=== PATIENT | male | born 1955 | race Caucasian/White ===

== ENCOUNTER → 2020-03-04 14:20 | Outpatient (BNVA) | payer OTHER, SELFPAY | PROVIDERS: PCP Internal Medicine; Visit Provider Urology | DX: Z76.89 Persons encountering health services in other specified circumstances (principal) ==

== ENCOUNTER → 2020-09-17 13:44 | Outpatient (BNVA) | payer OTHER, SELFPAY | PROVIDERS: PCP Internal Medicine; Visit Provider Urology ==

== ENCOUNTER → 2021-01-14 11:27 | Outpatient (BNVA) | payer OTHER, SELFPAY | PROVIDERS: PCP Internal Medicine; Visit Provider Urology ==

== ENCOUNTER → 2021-05-14 08:53 | Outpatient (BNVA) | payer MEDICARE, OTHER, SELFPAY | PROVIDERS: PCP Internal Medicine; Visit Provider Urology | DX: N52.01 Erectile dysfunction due to arterial insufficiency (principal); C61 Malignant neoplasm of prostate | CPT/HCPCS: Q3014 ==

== ENCOUNTER 2021-09-08 12:49 | Outpatient (AMB) | payer MEDICARE, OTHER, SELFPAY ==
--- NOTE | 2021-09-08 12:49 | A.OFFVIS_ITS ---
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 He is a patient of Dr. Chu. He is seen for the following urologic conditions - BPH - prostate cancer - erectile dysfunction Telemedicine evaluation 15 minute consultation [employer] [place] PSA continues to decline PSA 2.5 Finasteride 5 times a week Good response to sildenafil 100 mg prescription refilled Continue surveillance every 4 months Prostate cancer: low risk, low volume [place] 6 - 2018 Last PSA 2.8 PiRADS 3 lesion x2 - equivocal and stable on MRI Prostate cancer was diagnosed 01/[address] Fernández. Diagnosis was reached by 01/18 , needle biopsy, for elevated PSA, PSA at diagnosis 4.7, size at TRUS 50 01/20 , needle biopsy. The [place] grade is Jan 201705/16 , 3+3 = 6 < 10% January 2019 1 of 12 cores RAL 15% , 3+3 = 6. TNM Classification of Malignant Tumours (TNM) T1c. The D'Sharlene (NCCN) risk category is Ultralow risk (PSA< 4, Gl < 7, T1c). Initial therapy included Primary treatment, Deferred Therapy (active surveillance). Recent labs included 04/21 , a PSA (prostate-specific antigen) 3.9 08/19 2.9, 12/20 2.0, 04/22 2.2, 07/22 2.9 - 02/21 2.9, 09/22 3.2, 12/23 3.5, 04/25 2.8, 08/23 2.5 Recent imaging included 05/23 , an MRI (magnetic resonance imaging) - right apex 1.1 cm PiRADs 3 - left mid gland posterior 1.1cm PiRADs 3 Associated conditions erectile dysfunction No hematuria No hot flashes No incontinence No osteopenia No pathologic fracture No radiation cystitis No rectal urgency No Therapeutic plan: Active Surveillance - finasteride 3 times a week Erectile dysfunction responsive to sildenafil 100mg PFSH Medical History Adenoma of right adrenal gland Benign prostatic hyperplasia with lower urinary tract symptoms 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 n Dysplastic nevus Elevated PSA Fatty liver History of kidney stones Hx of basal cell carcinoma Nocturia Prostate cancer Surgical History History of surgery Review of Systems Const All systems reviewed & are unremarkable except as noted in HPI and below Reports no additional complaints Resp Reports no additional complaints GI Reports no additional complaints Reports as per HPI Musc Reports no additional complaints Physical Exam Telemedicine evaluation Appropriate responses Regular breathing rate and rhythm HEENT Head: Yes normal to inspection Ears: hearing grossly normal bilaterally Eyes General: appearance normal, both eyes and all related structures Neck Neck: Yes normal visual inspection Chest Chest palpation & inspection: normal inspection of the chest Resp Effort & Inspection: normal respiratory effort and able to speak in complete sentences Assessment & Plan Assessment & Plan (1) Prostate cancer: Comment: Low-grade, low volume 2019 Code(s): C61 - Malignant neoplasm of prostate (2) Erectile dysfunction due to arterial insufficiency: Code(s): N52.01 - Erectile dysfunction due to arterial insufficiency Plan Trial tadalafil Orders: Orders Prostate Specific Antigen 4 Months C61 - Malignant neoplasm of prostate Medications: New tadalafil 5 mg PO DAILY 90 tabs 1RF sexual activity 90 days N52.01 - Erectile dysfunction due to arterial insufficiency Patient Instructions: Imaging studies, laboratory and physical exam results were discussed and reviewed in detail. No major barriers to patient understanding were identified. An opportunity to ask questions regarding the treatment plan was provided. All questions were answered. The patient expressed understanding and agreement with the above treatment plan. The patient is aware they should contact our office by phone for worsening of their current condition or the appearance of new urologic symptoms. Compliance is encouraged with any medications and followup testing that is ordered. It is a privilege to participate in the urologic care of your patient. If you have any questions or concerns regarding treatment for the above conditions, or other urologic issues, please do not hesitate to contact me. The office telephone contact is [phone]. This note is constructed using voice recognition software. While every effort has been made to ensure accuracy pump house operator errors may have been included. Yours sincerely, Dr Miguel Hodges MD, ISMA [facility] [place] - Urology Providers of Expert, Compassionate Care for the Genitourinary System Telehealth Telehealth Location of provider rendering services: practice address Location of patient: address on file Patient Identification confirmed using: Name, : Yes Telehealth method: voice only Patient verbally consented to treatment: Yes Patient verbally consented to billing insurance company: Yes Patient informed of any privacy concerns related to visit: Yes Coding Level of Care Code Tele Est Pt Level 3 (45449) Diagnoses Prostate cancer C61 Erectile dysfunction due to arterial insufficiency N52.01
== END 2021-09-08 14:17 | disposition home or self-care (01) ==
LOC: HO.HUSH 12:49
PROVIDERS: PCP Internal Medicine; Visit Provider Urology
DX: C61 Malignant neoplasm of prostate (principal); N52.01 Erectile dysfunction due to arterial insufficiency
CPT/HCPCS: 99499

== ENCOUNTER → 2021-09-08 12:49 | Outpatient (BNVA) | payer MEDICARE, OTHER, SELFPAY | PROVIDERS: PCP Internal Medicine; Visit Provider Urology | DX: Z13.89 Encounter for screening for other disorder (principal) ==

== ENCOUNTER → 2022-01-06 14:14 | Outpatient (BNVA) | payer MEDICARE, OTHER, SELFPAY | PROVIDERS: PCP Internal Medicine; Visit Provider Urology | DX: R97.20 Elevated prostate specific antigen [PSA] (principal); C61 Malignant neoplasm of prostate | CPT/HCPCS: 99212 ==

== ENCOUNTER → 2022-07-09 09:03 | Outpatient (BNVA) | payer MEDICARE, OTHER, SELFPAY | PROVIDERS: PCP Internal Medicine; Visit Provider Urology | DX: C61 Malignant neoplasm of prostate (principal); N52.01 Erectile dysfunction due to arterial insufficiency | CPT/HCPCS: Q3014 ==

== ENCOUNTER 2023-01-11 11:19 | Outpatient (AMB) | payer MEDICARE, OTHER, SELFPAY ==
--- NOTE | 2023-01-11 11:22 | MHC.OFFVIS ---
Intake Intake Visit Reasons: 6M PSA/MRI(set) Intake Note: Patient is present for for a follow-up on PSA & MRI Results Results: 12/31/22- PSA: 2.2 ng/mL Urology Med: Finasteride, Tadalafil, Sildenafil Antibiotic Allergy: None Blood Thinner: None Accounting Practice Manager Required: No Accompanied by: Self / Same As Patient Allergies No Known Allergies Allergy (Verified 01/11/23 11:26) HPI HPI Comments History of Present Illness Details Onofre is a pleasant male. He is a patient of Dr. Chu. He is seen for the following urologic conditions - BPH - prostate cancer - erectile dysfunction PSA lowest it has been MRI no evidence of disease Continue current therapy Recent pancreatic lesion diagnosis Prostate cancer: low risk, low volume [place] 6 - 2019 PiRADS 3 lesion x2 - equivocal and stable on MRI Prostate cancer was diagnosed 01/[address] Fernández. Diagnosis was reached by 01/18 , needle biopsy, for elevated PSA, PSA at diagnosis 4.7, size at TRUS 50 01/20 , needle biopsy. The [place] grade is Jan 2017/ , 3+3 = 6 < 10% January 2019 1 of 12 cores RAL 15% , 3+3 = 6. TNM Classification of Malignant Tumours (TNM) T1c. The D'Sharlene (NCCN) risk category is Ultralow risk (PSA< 4, Gl < 7, T1c). Initial therapy included Primary treatment, Deferred Therapy (active surveillance). Recent labs included 04/21 , a PSA (prostate-specific antigen) 3.9 08/19 2.9, 12/20 2.0, 04/22 2.2, 07/22 2.9 - 02/21 2.9, 09/22 3.2, 12/23 3.5, 04/25 2.8, 08/23 2.5, 12/24 2.6, 05/27 2.4, 12/25 2.2 Recent imaging included 05/23 , an MRI (magnetic resonance imaging) - right apex 1.1 cm PiRADs 3 - left mid gland posterior 1.1cm PiRADs 3 Associated conditions erectile dysfunction Yes Therapeutic plan: Active Surveillance - finasteride 3 times a week Erectile dysfunction Responsive to sildenafil 100mg Baseline daily tadalafil 5 mg PFSH Medical History Adenoma of right adrenal gland Benign prostatic hyperplasia with lower urinary tract symptoms 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n Dysplastic nevus Elevated PSA Fatty liver History of kidney stones Hx of basal cell carcinoma Nocturia Prostate cancer Surgical History History of surgery Review of Systems Const Denies chills and Denies fever(s) Card Reports no additional complaints and Denies syncope Resp Denies cough GI Denies abdominal pain and Denies heartburn Reports as per HPI and Denies change in libido Neuro Denies syncope Psych Denies change in libido Endo Denies change in libido Physical Exam Const General: cooperative, healthy appearing, comfortable and no acute distress Orientation/consciousness: patient oriented x3 HEENT Face and sinus: Yes normal facial exam Mouth: moist mucous membranes Neck Neck: Yes normal visual inspection, Yes full ROM and Yes trachea midline Chest Chest palpation & inspection: normal inspection of the chest Resp Effort & Inspection: normal respiratory effort, able to speak in complete sentences and no respiratory distress GI Inspection: Yes normal to inspection Back/Spine/Pelvis Cervical Spine: normal cervical lordosis Thoracic/Lumbar Spine: thoracic and lumbar spine normal to inspection Skin General skin exam: no rashes or lesions noted Neuro General: patient oriented x3, gait normal, tone normal and moves all extremities Extrem General: Yes normal to inspection and Yes capillary refill normal Assessment & Plan Assessment & Plan (1) Prostate cancer: Comment: Low-grade, low volume 2019 Code(s): C61 - Malignant neoplasm of prostate (2) Erectile dysfunction due to arterial insufficiency: Code(s): N52.01 - Erectile dysfunction due to arterial insufficiency Plan 4 month follow-up tele visit Patient Instructions: Imaging studies, laboratory and physical exam results were discussed and reviewed in detail. No major barriers to patient understanding were identified. An opportunity to ask questions regarding the treatment plan was provided. All questions were answered. The patient expressed understanding and agreement with the above treatment plan. The patient is aware they should contact our office by phone for worsening of their current condition or the appearance of new urologic symptoms. Compliance is encouraged with any medications and followup testing that is ordered. It is a privilege to participate in the urologic care of your patient. If you have any questions or concerns regarding treatment for the above conditions, or other urologic issues, please do not hesitate to contact me. The office telephone contact is [phone]. This note is constructed using voice recognition software. While every effort has been made to ensure accuracy finance business manager errors may have been included. Yours sincerely, Dr Miguel Hodges MD, ISMA [facility] - Urology Providers of Expert, Compassionate Care for the Genitourinary System Coding Level of Care Code Est Pt Level 3 (41437) Diagnoses Prostate cancer C61 Erectile dysfunction due to arterial insufficiency N52.01
== END 2023-01-11 12:14 | disposition home or self-care (01) ==
PROVIDERS: PCP Internal Medicine; Visit Provider Urology
DX: C61 Malignant neoplasm of prostate (principal); N52.01 Erectile dysfunction due to arterial insufficiency
CPT/HCPCS: 99213

== ENCOUNTER → 2023-01-11 11:19 | Outpatient (BNVA) | payer MEDICARE, OTHER, SELFPAY | PROVIDERS: Visit Provider Urology | DX: C61 Malignant neoplasm of prostate (principal); N52.01 Erectile dysfunction due to arterial insufficiency | CPT/HCPCS: 99212 ==

== ENCOUNTER 2023-06-15 10:41 | Outpatient (AMB) | payer MEDICARE, OTHER, SELFPAY ==
--- NOTE | 2023-06-15 10:42 | A.OFFVIS_ITS ---
Intake Intake Visit Reasons: 4M PSA(set)Confirmed Intake Note: Patient presents today for a follow-up on PSA Meds- Finasteride, Sildenafil, Tadalafil Allergies to Antibiotic- No Known Allergies Blood Thinner- None Linux Developer Required: No Allergies No Known Allergies Allergy (Verified 06/15/23 10:43) Medication List - Last Reconciled 06/15/23 by Miguel Hodges MD finasteride 5 mg PO DAILY 90 days sildenafil 100 mg PO DAILY PRN 30 days tadalafil 10 mg PO DAILY 90 days HPI HPI Comments History of Present Illness Details Onofre is a pleasant male. He is a patient of Dr. Chu. He is seen for the following urologic conditions - BPH - prostate cancer - erectile dysfunction Telemedicine Evaluation 15 min Consultation [employer] attempted PSA at 2.8 MRI no evidence of disease Continue current therapy Pancreatic Lesion - 03/26 Whipple procedure Prostate cancer: low risk, low volume [place] 6 - 12/25 PiRADS 3 lesion x2 - equivocal and stable on MRI Prostate cancer was diagnosed 01/[address] Fernández. Diagnosis was reached by 01/18 , needle biopsy, for elevated PSA, PSA at diagnosis 4.7, size at TRUS 50 01/20 , needle biopsy. The [place] grade is Jan 201705/16 , 3+3 = 6 < 10% January 2019 1 of 12 cores RAL 15% , 3+3 = 6. TNM Classification of Malignant Tumours (TNM) T1c. The D'Sharlene (NCCN) risk category is Ultralow risk (PSA< 4, Gl < 7, T1c). Initial therapy included Primary treatment, Deferred Therapy (active surveillance). Recent labs included 04/21 , a PSA (prostate-specific antigen) 3.9 08/19 2.9, 12/20 2.0, 04/22 2.2, 07/22 2.9 - 02/21 2.9, 09/22 3.2, 12/23 3.5, 04/25 2.8, 08/23 2.5, 12/24 2.6, 05/27 2.4, 12/25 2.2, 06/25 2.8 Recent imaging included 05/23 , an MRI (magnetic resonance imaging) - right apex 1.1 cm PiRADs 3 - left mid gland posterior 1.1cm PiRADs 3 Associated conditions erectile dysfunction Yes Therapeutic plan: Active Surveillance - finasteride 3 times a week Erectile dysfunction Responsive to sildenafil 100mg Baseline daily tadalafil 5 mg PFSH Medical History Hx of basal cell carcinoma History of kidney stones Adenoma of right adrenal gland Fatty liver Dysplastic nevus 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n Benign prostatic hyperplasia with lower urinary tract symptoms Nocturia Elevated PSA Prostate cancer Surgical History History of surgery Review of Systems Const All systems reviewed & are unremarkable except as noted in HPI and below Reports no additional complaints Resp Reports no additional complaints GI Reports no additional complaints Reports as per HPI Musc Reports no additional complaints Physical Exam Telemedicine evaluation Appropriate responses Regular breathing rate and rhythm HEENT Head: Yes normal to inspection Ears: hearing grossly normal bilaterally Eyes General: appearance normal, both eyes and all related structures Neck Neck: Yes normal visual inspection Chest Chest palpation & inspection: normal inspection of the chest Resp Effort & Inspection: normal respiratory effort and able to speak in complete sentences Assessment & Plan Assessment & Plan (1) Prostate cancer: Comment: Low-grade, low volume 2018 Code(s): C61 - Malignant neoplasm of prostate (2) Erectile dysfunction due to arterial insufficiency: Code(s): N52.01 - Erectile dysfunction due to arterial insufficiency Plan Continue six-month surveillance and finasteride Orders: Orders Prostate Specific Antigen 6 Months C61 - Malignant neoplasm of prostate Medications: Refilled finasteride 5 mg PO DAILY 90 tabs 1RF 90 days R97.20 - Elevated prostate specific antigen [PSA], C61 - Malignant neoplasm of prostate Patient Instructions: Imaging studies, laboratory and physical exam results were discussed and reviewed in detail. No major barriers to patient understanding were identified. An opportunity to ask questions regarding the treatment plan was provided. All questions were answered. The patient expressed understanding and agreement with the above treatment plan. The patient is aware they should contact our office by phone for worsening of their current condition or the appearance of new urologic symptoms. Compliance is encouraged with any medications and followup testing that is ordered. It is a privilege to participate in the urologic care of your patient. If you have any questions or concerns regarding treatment for the above conditions, or other urologic issues, please do not hesitate to contact me. The office telephone contact is [phone]. This note is constructed using voice recognition software. While every effort has been made to ensure accuracy house wrecker errors may have been included. Yours sincerely, Dr Miguel Hodges MD, ISMA [facility] - Urology Providers of Expert, Compassionate Care for the Genitourinary System Telehealth Telehealth Location of provider rendering services: practice address Location of patient: address on file Patient Identification confirmed using: Name, : Yes Telehealth method: video Patient verbally consented to treatment: Yes Patient verbally consented to billing insurance company: Yes Patient informed of any privacy concerns related to visit: Yes Coding Level of Care Code Tele Est Pt Level 3 (57010) Diagnoses Prostate cancer C61 Erectile dysfunction due to arterial insufficiency N52.01
== END 2023-06-15 11:39 | disposition home or self-care (01) ==
LOC: HO.HUSH 10:41
PROVIDERS: PCP Internal Medicine; Visit Provider Urology
DX: C61 Malignant neoplasm of prostate (principal); N52.01 Erectile dysfunction due to arterial insufficiency
CPT/HCPCS: 99213

== ENCOUNTER → 2023-06-15 10:41 | Outpatient (BNVA) | payer MEDICARE, OTHER, SELFPAY | PROVIDERS: PCP Internal Medicine; Visit Provider Urology ==

== ENCOUNTER 2023-12-14 11:41 | Outpatient (AMB) | payer MEDICARE, OTHER, SELFPAY ==
--- NOTE | 2023-12-14 11:55 | MHC.OFFVIS ---
Intake Visit Reasons: 6M Follow Up-PSA(psa?) Intake Note: Patient is Present for Follow Up PSA Urology Medication: Finasteride, Sildenafil, Tadalafil Antibiotic Allergies:None Blood Thinners: None PSA 11/29/23- 2.5 Last PSA- 2.9 Lean Process Deployment Consultant Required: No Allergies No Known Allergies Allergy (Verified 12/14/23 11:56) Medication List - Last Reconciled 12/14/23 by Miguel Hodges MD amlodipine 10 mg PO DAILY escitalopram oxalate 10 mg PO DAILY finasteride 5 mg PO DAILY 90 days losartan 50 mg PO DAILY sildenafil 100 mg PO DAILY PRN 30 days tadalafil 10 mg PO DAILY 90 days HPI Comments Details: Onofre is a pleasant male. He is a patient of Dr. Chu. He is seen for the following urologic conditions - BPH - prostate cancer - erectile dysfunction Current PSA 2.5 MRI no evidence of disease Continue current therapy Recommend finasteride alternating month dosage Pancreatic Lesion - 03/26 Whipple procedure Prostate cancer: low risk, low volume [place] 6 - 12/25 PiRADS 3 lesion x2 - equivocal and stable on MRI Prostate cancer was diagnosed 01/[address] Fernández. Diagnosis was reached by 01/18 , needle biopsy, for elevated PSA, PSA at diagnosis 4.7, size at TRUS 50 01/20 , needle biopsy. The [place] grade is Jan 201705/16 , 3+3 = 6 < 10% January 2019 1 of 12 cores RAL 15% , 3+3 = 6. TNM Classification of Malignant Tumours (TNM) T1c. The D'Sharlene (NCCN) risk category is Ultralow risk (PSA< 4, Gl < 7, T1c). Initial therapy included Primary treatment, Deferred Therapy (active surveillance). Recent labs included 04/21 , a PSA (prostate-specific antigen) 3.9 08/19 2.9, 12/20 2.0, 04/22 2.2, 07/22 2.9 - 02/21 2.9, 09/22 3.2, 12/23 3.5, 04/25 2.8, 08/23 2.5, 12/24 2.6, 05/27 2.4, 12/25 2.2, 06/25 2.8, 12/26 2.5 Recent imaging included 05/23 , an MRI (magnetic resonance imaging) - right apex 1.1 cm PiRADs 3 - left mid gland posterior 1.1cm PiRADs 3 Associated conditions erectile dysfunction Yes Therapeutic plan: Active Surveillance - finasteride 3 times a week Erectile dysfunction Responsive to sildenafil 100mg Baseline daily tadalafil 10 mg PFSH Medical History Hx of basal cell carcinoma History of kidney stones Adenoma of right adrenal gland Fatty liver Dysplastic nevus 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n Benign prostatic hyperplasia with lower urinary tract symptoms Nocturia Elevated PSA Prostate cancer Surgical History History of surgery Review of Systems Const Denies chills and Denies fever(s) Card Reports no additional complaints and Denies syncope Resp Denies cough GI Denies abdominal pain and Denies heartburn Reports as per HPI and Denies change in libido Neuro Denies syncope Psych Denies change in libido Endo Denies change in libido Physical Exam Const General: cooperative, healthy appearing, comfortable and no acute distress Orientation/consciousness: patient oriented x3 HEENT Face and sinus: Yes normal facial exam Mouth: moist mucous membranes Neck Neck: Yes normal visual inspection, Yes full ROM and Yes trachea midline Chest Chest palpation & inspection: normal inspection of the chest Resp Effort & Inspection: normal respiratory effort, able to speak in complete sentences and no respiratory distress GI Inspection: Yes normal to inspection Back/Spine/Pelvis Cervical Spine: normal cervical lordosis Thoracic/Lumbar Spine: thoracic and lumbar spine normal to inspection Skin General skin exam: no rashes or lesions noted Neuro General: patient oriented x3, gait normal, tone normal and moves all extremities Extrem General: Yes normal to inspection and Yes capillary refill normal Assessment & Plan Assessment & Plan (1) Erectile dysfunction due to arterial insufficiency: Code(s): N52.01 - Erectile dysfunction due to arterial insufficiency Category: Medical (2) Prostate cancer: Comment: Low-grade, low volume 2018 Code(s): C61 - Malignant neoplasm of prostate Category: Medical Plan Six-month follow-up PSA Orders: Orders Prostate Specific Antigen 6 Months C61 - Malignant neoplasm of prostate Patient Instructions: Imaging studies, laboratory and physical exam results were discussed and reviewed in detail. No major barriers to patient understanding were identified. An opportunity to ask questions regarding the treatment plan was provided. All questions were answered. The patient expressed understanding and agreement with the above treatment plan. The patient is aware they should contact our office by phone for worsening of their current condition or the appearance of new urologic symptoms. Compliance is encouraged with any medications and followup testing that is ordered. It is a privilege to participate in the urologic care of your patient. If you have any questions or concerns regarding treatment for the above conditions, or other urologic issues, please do not hesitate to contact me. The office telephone contact is [phone]. This note is constructed using voice recognition software. While every effort has been made to ensure accuracy pulpwood contractor errors may have been included. Yours sincerely, Dr Miguel Hodges MD, ISMA [facility] - Urology Providers of Expert, Compassionate Care for the Genitourinary System Coding Level of Care Code Est Pt Level 3 (94860) Diagnoses Erectile dysfunction due to arterial insufficiency N52.01 Prostate cancer C61
== END 2023-12-14 12:28 | disposition home or self-care (01) ==
LOC: HO.HUSH 11:41
PROVIDERS: PCP Internal Medicine; Visit Provider Urology
DX: N52.01 Erectile dysfunction due to arterial insufficiency (principal); C61 Malignant neoplasm of prostate
CPT/HCPCS: 99213

== ENCOUNTER → 2023-12-14 11:41 | Outpatient (BNVA) | payer MEDICARE, OTHER, SELFPAY | PROVIDERS: PCP Internal Medicine; Visit Provider Urology | DX: C61 Malignant neoplasm of prostate (principal); N40.0 Benign prostatic hyperplasia without lower urinary tract symptoms; N52.9 Male erectile dysfunction, unspecified; N52.01 Erectile dysfunction due to arterial insufficiency; Z79.899 Other long term (current) drug therapy | CPT/HCPCS: 99212 ==

== ENCOUNTER 2024-06-21 11:25 | Outpatient (AMB) | payer MEDICARE, OTHER, SELFPAY ==
--- NOTE | 2024-06-21 11:42 | A.OFFVIS_ITS ---
Intake Visit Reasons: 6m/psa Intake Note: Pt presents to the office today for a 6 month follow up/PSA. Allergies No Known Allergies Allergy (Verified 06/21/24 11:43) HPI Comments Details: Onofre is a pleasant male. He is a patient of Dr. Chu. He is seen for the following urologic conditions - BPH - prostate cancer - erectile dysfunction PSA jump since last lab work Has been on alternating finasteride Follow in 4 months If persistently high would consider repeat biopsy Pancreatic Lesion - 03/26 Whipple procedure Prostate cancer: low risk, low volume Satinder 6 - 12/25 PiRADS 3 lesion x2 - equivocal and stable on MRI Prostate cancer was diagnosed 01/[address] Fernández. Diagnosis was reached by 01/18 , needle biopsy, for elevated PSA, PSA at diagnosis 4.7, size at TRUS 50 01/20 , needle biopsy. The Satinder grade is Jan 201705/16 , 3+3 = 6 < 10% January 2019 1 of 12 cores RAL 15% , 3+3 = 6. TNM Classification of Malignant Tumours (TNM) T1c. The D'Sharlene (NCCN) risk category is Ultralow risk (PSA< 4, Gl < 7, T1c). Initial therapy included Primary treatment, Deferred Therapy (active surveillance). Recent labs included 04/21 , a PSA (prostate-specific antigen) 3.9 08/19 2.9, 12/20 2.0, 04/22 2.2, 07/22 2.9 - 02/21 2.9, 09/22 3.2, 12/23 3.5, 04/25 2.8, 08/23 2.5, 12/24 2.6, 05/27 2.4, 12/25 2.2, 06/25 2.8, 12/26 2.5, 06/26 6.3 Recent imaging included 05/23 , an MRI (magnetic resonance imaging) - right apex 1.1 cm PiRADs 3 - left mid gland posterior 1.1cm PiRADs 3 Associated conditions erectile dysfunction Yes Therapeutic plan: Active Surveillance - finasteride 3 times a week Erectile dysfunction Responsive to sildenafil 100mg Baseline daily tadalafil 10 mg PFSH Medical History Hx of basal cell carcinoma History of kidney stones Adenoma of right adrenal gland Fatty liver Dysplastic nevus 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n Benign prostatic hyperplasia with lower urinary tract symptoms Nocturia Elevated PSA Prostate cancer Surgical History History of surgery Review of Systems Const Denies chills and Denies fever(s) Card Reports no additional complaints and Denies syncope Resp Denies cough GI Denies abdominal pain and Denies heartburn Reports as per HPI and Denies change in libido Neuro Denies syncope Psych Denies change in libido Endo Denies change in libido Physical Exam Const General: cooperative, healthy appearing, comfortable and no acute distress Orientation/consciousness: patient oriented x3 HEENT Face and sinus: Yes normal facial exam Mouth: moist mucous membranes Neck Neck: Yes normal visual inspection, Yes full ROM and Yes trachea midline Chest Chest palpation & inspection: normal inspection of the chest Resp Effort & Inspection: normal respiratory effort, able to speak in complete sentences and no respiratory distress GI Inspection: Yes normal to inspection Back/Spine/Pelvis Cervical Spine: normal cervical lordosis Thoracic/Lumbar Spine: thoracic and lumbar spine normal to inspection Skin General skin exam: no rashes or lesions noted Neuro General: patient oriented x3, gait normal, tone normal and moves all extremities Extrem General: Yes normal to inspection and Yes capillary refill normal Assessment & Plan Assessment & Plan (1) Prostate cancer: Comment: Low-grade, low volume 2019 Code(s): C61 - Malignant neoplasm of prostate Category: Medical Plan Four month follow-up repeat PSA Orders: Orders Prostate Specific Antigen 4 Months C61 - Malignant neoplasm of prostate Patient Instructions: This note is constructed using voice recognition software. While every effort has been made to ensure accuracy advertising operations manager errors may have been included. Imaging studies, laboratory and physical exam results were discussed and reviewed in detail. No major barriers to patient understanding were identified. An opportunity to ask questions regarding the treatment plan was provided. All questions were answered. The patient expressed understanding and agreement with the above treatment plan. The patient is aware they should contact our office by phone for worsening of their current condition or the appearance of new urologic symptoms. Compliance is encouraged with any medications and followup testing that is ordered. It is a privilege to participate in the urologic care of your patient. If you have any questions or concerns regarding treatment for the above conditions, or other urologic issues, please do not hesitate to contact me. The office telephone contact is [phone]. Sincerely, Dr Miguel Hodges MD, ISMA [facility] - Urology Compassionate Specialist Care for the Genitourinary System Coding Level of Care Code Est Pt Level 3 (28284) Diagnoses Prostate cancer C61
--- OUTSIDE RECORDS SUMMARY | 2024-06-21 13:43 | XMS_ITS | Encounter Summary ---
Author Organization [facility] Address [address] [place] [address] Care Team Providers Care Assistant Account Executive Name Role Phone Akira Chu MD Primary Care Provider [phone] Reason for Visit * Reason Comments Consult * Consultation (Routine) - Closed Specialty Diagnoses / Procedures Referred By Contac t Referred To Contact Hematology and Oncology Diagnoses Thrombocytopenia (CMS/HCC) Akira Chu MD [address] [address] Phone: tel: fax: [facility] Hematology Oncology [address] [place] [phone] Phone: tel: fax: Referral ID Status Reason Start Date Expiration Date V isits Requested Visits Authorized [id number] Closed Specialty Services Required 05/09/2024 05/09/2025 1 1 Encounter Details Date Type Department Care Team (Latest Contact Info) Description 05/23/2024 11:00 AM EST Office Visit [facility] Hematology Oncology [address] [place] [phone] Marianne Gilbert MD [address] [place], [place] [phone] Thrombocytopenia (CMS/HCC) Social History Tobacco Use Types Packs/Day Years Used Date Smoking Tobacco: Never Smokeless Tobacco: Never Tobacco Cessation:Counseling Given: Not Answered Alcohol Use Standard Drinks/Week Comments Not Currently 0 (1 standard drink = 0.6 oz pur e alcohol) Interpersonal Safety Answer Date Record ed Physical Abuse 02/06/2024 Verbal Abuse 02/06/2024 Sex and Gender Information Value Date Recorded Sex Assigned at Male 05/09/2024 12:21 PM EST Legal Sex Male 4:09 PM EST Gender Identity Male 05/09/2024 12:21 PM EST Sexual Orientation Not on file documented as of this encounter Last Filed Vital Signs Vital Sign Reading Time Taken Comments Blood Pressure 146/73 05/23/2024 11:04 AM EST Pulse 75 05/23/2024 11:04 AM EST Temperature 36.6 ??C (97.8 ??F) 05/23/2024 11:[address] Respiratory Rate - - Oxygen Saturation 100% 05/23/2024 11:04 AM EST Inhaled Oxygen Concentration - - Weight 92.1 kg (203 lb) 05/23/2024 11:04 AM EST Height 172.7 cm (5' 8 ) 05/23/2024 11:04 AM EST Body Mass Index 30.87 05/23/2024 11:04 AM EST documented in this encounter Progress Notes * Marianne Gilbert MD - 05/23/2024 11:00 AM EST ONC CANCER INITIAL VISIT Dear Akira, Thank you very much for referring this patient for consultation. HPI: Patient is a 68-year-old man, who has multiple medical issues including fatty liver and mild splenomegaly, patient found to have mild to moderate, cytopenia so referred to me for further hematological evaluation, patient denies any significant bleeding bruising, patient denies any prior history anyfamily history of hematological disorder ROS: GENERAL: No anorexia, intentional weight loss, fever, chills, night sweats or any significant fatigue HEENT no headache no visual symptom NECK: No lumps, goiter, pain or significant neck swelling RESPIRATORY: No cough or shortness of breath CARDIOVASCULAR: No chest pain. GI: No abdominal discomfort, blood in stools or black stools MUSCULOSKELETAL: No new unusual aches and pain HEMATOLOGY/LYMPHOLOGY No prolonged bleeding, easy bruisability or swollen nodes Other Systems review is non contributory PAST MEDICAL HISTORY: Anxiety disorder Benign prostatic hypertrophy Esophagitis Hypertension Dyslipidemia Nephrolithiasis Fatty liver Thrombocytopenia PAST SURGICAL HISTORY: Cholecystectomy Whipple procedure Knee surgery SOCIAL HISTORY: He never smoke He denied alcohol use and abuse He is lives with his FAMILY HISTORY: Noncontributory MEDICATIONS: Current Outpatient Medications: amLODIPine (NORVASC) 10 mg tablet, Take 1 tablet (10 mg total) by mouth 1 (one) time each day., Disp: , Rfl: BERBERINE CHLORIDE ORAL, Take 275 mg by mouth., Disp: , Rfl: clotrimazole-betamethasone (LOTRISONE) 1-0.05 % cream, Apply topically 2 (two) times a day., Disp: , Rfl: DICLOFENAC SODIUM TOP, Place on the skin., Disp: , Rfl: escitalopram (LEXAPRO) 10 mg tablet, Take 1 tablet (10 mg total) by mouth 1 (one) time each day., Disp: , Rfl: finasteride (PROSCAR) 5 mg tablet, Take 1 tablet (5 mg total) by mouth 1 (one) time each day., Disp: , Rfl: magnesium oxide (MAG-OX) 400 mg magnesium tablet, Take 1 tablet (400 mg total) by mouth 1 (one) time each day., Disp: , Rfl: milk thistle 175 mg tablet, Take 1 tablet (175 mg total) by mouth 1 (one) time each day., Disp: , Rfl: multivitamin tablet, Take 1 tablet by mouth 1 (one) time each day., Disp: , Rfl: resveratroL 250 mg capsule, Take by mouth., Disp: , Rfl: sildenafiL (VIAGRA) 100 mg tablet, Take 0.5 tablets (50 mg total) by mouth if needed., Disp: , Rfl: No Known Allergies PHYSICAL EXAM: Visit Vitals BP (!) 146/73 (BP Location: Left arm, Patient Position: Sitting, BP Cuff Size: Large adult) Pulse 75 Temp 36.6 ??C (97.8 ??F) (Temporal) Ht 1.727 m (68 ) Wt 92.1 kg (203 lb) SpO2 100% BMI 30.87 kg/m?? Smoking Status Never BSA 2.06 m?? ECOG 0 APPEARANCE: Alert and oriented in no acute distress, mildly obese EYES: nonicteric sclera pink conjunctiva NECK: no significant palpable lymph node ORAL CAVITY: No erythema or exudates NECK: Neck supple, no adenopathy, HEART: normal S1 and S2 LUNG: clear to auscultation bilaterally LYMPH NODES: No palpable superficial adenopathy ABDOMEN: soft, nontender and no organomegaly appreciated. EXTREMITIES: No significant edema, erythema, tenderness, petechiae, ecchymosis, purpura LABS: WBC 3.7, hemoglobin 14.4 g, hematocrit 45.5%, MCV 89 and platelet count 89,000 SGOT 41 SGPT 74 and alk phos 134 ASSESSMENT 1. Thrombocytopenia (CMS/HCC) Patient is a 68-year-old man, who has mild to moderate thrombocytopenia without any significant symptom, patient unfortunately also has significant history of fatty liver, mild splenomegaly, most likely patient has mild, cytopenia due to chronic liver disease/portal hypertension but less likely possibility include ITP, myeloid disease of the bone marrow, medication etc. Patient about potential different etiologies of his low platelet, I told him I would like to reviewperipheral smear as well as check platelet antibody/liver function etc. and see him back in next couple week for any further intervention in the meantime I recommend him to avoid NSAIDs PLAN: Above labs today, return to office in couple weeks for any further intervention, I will keep you posted Marianne Gilbert MD cc: Akira Chu MD documented in this encounter Plan of Treatment Upcoming Encounters Date Type Department Care Team (Late st Contact Info) Description 06/28/2024 9:40 AM EDT Office Visit Gastroenterology - [address] [place] [phone] Leann Yanez, NICK [address] [address] documented as of this encounter Results * Platelet antibodies, indirect (05/23/2024 11:23 AM EST) Overall Result Negative Not Applicable 05/30/2024 8:57 AM EST [facility] Interpretation SEE BELOW 05/30/2024 8:57 AM EST [facility] Comment:RESULT: No platelet antibodies were detected. GPIIb/IIIa (Cell-1) Negative Not Applicable 05/30/2024 8:57 AM EST [facility] Comment: Antigens: HPA-1a/1a,3a/3a,4a/ Observed OD Value: 0.115/Cutoff: 0.243 GPIIb/IIIa (Cell-2) Negative Not Applicable 05/30/2024 8:57 AM EST [facility] Comment: Antigens: HPA-1b/1b,3b/3b,4a/ Observed OD Value: 0.080/Cutoff: 0.178 GPIa/IIa (Cell-1) Negative Not Applicable 05/30/2024 8:57 AM EST [facility] Comment: Antigens: HPA-5b/5b Observed OD Value: 0.123/Cutoff: 0.150 GPIa/IIa (Cell-2) Negative Not Applicable 05/30/2024 8:57 AM EST [facility] Comment: Antigens: HPA-5a/5a Observed OD Value: 0.115/Cutoff: 0.173 GPIb/IX Negative Not Applicable 05/30/2024 8:57 AM EST [facility] Comment:Observed OD Value: 0 .034/Cutoff: 0.069 GPIV Negative Not Applicable 05/30/2024 8:57 AM EST [facility] Comment:Observed OD Value: 0 .078/Cutoff: 0.168 HLA Class I Negative Not Applicable 05/30/2024 8:57 AM EST [facility] Comment: Observed OD Value: 0.087/Cutoff: 0.205 ADDITIONAL INFORMATION The presence of other HPA polymorphic variants located on GPIIb/IIIa (HPA-6,7,8,9,10,11,14,16,17,19,20,21), GPIa/IIa (HPA-13,18), and GPIb/IX (HPA-12) have not been determined for this assay. Therefore, antibodies to these may be reactive in this assay. Method: Deepika Based Assay CLIA: [id number] ??CLIA Delivery Room Supervisor: RAYMOND PINEDA,Ph.D. Reason for Request? N/A 05/30/2024 8:57 AM EST [facility] IVIg in last month? N/A 05/30/2024 8:57 AM [facility] Comment: Test Performed by: [address] [address] Delivery Room Supervisor: Raymond Pineda Ph.D.; CLIA# [id number] Comment added after verification. Original result, verified by [email or web address] at 18:01 on 05/25/2024 Plt Transfusion in last 72 hours? N/A 05/30/2024 8:57 AM EST [facility] Platelet Count x 10(9)/L ? N/A 05/30/2024 8:57 AM EST [facility] Blood Venous blood specimen / Unknown Venipuncture / Unknown 05/23/2024 11:23 AM EST 05/23/2024 1:36 PM EST us Marianne Gilbert MD LAB BLOOD ORDERABLES Final R esult [facility] [address] [place] [address] * (ABNORMAL) Hepatic function panel (05/23/2024 11:23 AM EST) Total Protein 7.0 6.0 - 8.0 g/dL LAB CHEMISTRY METHOD 05/23/2024 3:16 PM [facility] Albumin 4.0 3.2 - 5.0 g/dL LAB CHEMISTRY METHOD 05/23/2024 3:16 PM [facility] Total Bilirubin 0.7 0.0 - 1.4 mg/dL LAB CHEMISTRY METHOD 05/23/2024 3:16 PM [facility] Bilirubin, Direct 0.2 0.0 - 0.3 mg/dL LAB CHEMISTRY METHOD 05/23/2024 3:16 PM [facility] Bilirubin, Indirect 0.5 0.0 - 1.1 mg/dL LAB CHEMISTRY METHOD 05/23/2024 3:16 PM [facility] ALT (SGPT) 85(H) 10 - 60 unit/L LAB CHEMISTRY METHOD 05/23/2024 3:16 PM [facility] AST (SGOT) 36 10 - 42 unit/L LAB CHEMISTRY METHOD 05/23/2024 3:16 PM EST [facility] Alkaline Phosphatase 110 42 - 121 unit/L LAB CHEMISTRY METHOD 05/23/2024 3:16 PM EST [facility] Blood Venous blood specimen / Unknown Venipuncture / Unknown 05/23/2024 11:23 AM EST 05/23/2024 1:36 PM EST [facility] Ángela Gilbert MD LAB BLOOD ORDERABLES Final R esult [facility] [address] [place] [address], documented in this encounter Visit Diagnoses Diagnosis Thrombocytopenia (CMS/HCC) Unspecified thrombocytopenia documented in this encounter Discontinued Medications Medication Sig Discontinue Reason Start Date End Da te bisacodyL (Dulcolax, bisacodyl,) 5 mg EC tablet Take 4 tablets (20 mg total) by mouth 1 (one) time. The night before your procedure 02/22/2019 05/23/2024 triamcinolone (KENALOG) 0.1 % cream Apply topically 2 (two) times a day if needed. 07/16/2021 05/23/2024 polyethylene glycol (Miralax) 17 gram/dose oral powder Take 238 g by mouth 1 (one) time. The night before your procedure 02/22/2019 05/23/2024 documented as of this encounter Historical Medications * This list may reflect changes made after this encounter. magnesium oxide (MAG-OX) 400 mg magnesium tablet Take 1 tablet (400 mg total) by mouth 1 (one) time each day. added in this encounter Orders Lab Orders Without Results Count Last Ordered D ate First Ordered Date PLATELET ANTIBODIES, DIRECT 1 05/23/2024 Outpatient Referral Count Last Ordered Date Fir st Ordered Date AMB REFERRAL TO HEMATOLOGY / ONCOLOGY 1 documented in this encounter Care Teams Assistant Account Executive Relationship Specialty Start Date End Date Akira Chu MD [address] [place] [id number] PCP - General Internal Medicine 02/01/24 documented as of this encounter
--- OUTSIDE RECORDS SUMMARY | 2024-06-21 13:43 | XMS_ITS | Encounter Summary ---
Author Organization [facility] Address [address] [place] [address] Care Team Providers Care Physicist Nuclear Name Role Phone Akira Chu MD Primary Care Provider [phone] Reason for Visit * Reason Comments Follow-up Encounter Details Date Type Department Care Team (Latest Contact Info) Description 06/12/2024 10:45 AM EDT Office Visit [facility] Hematology Oncology [address] [place] [phone] Marianne Gilbert MD [address] [place] [address] Thrombocytopenia (CMS/HCC) (Primary Dx) Social History Tobacco Use Types Packs/Day Years [...] Sign Reading Time Taken Comments Blood Pressure 149/71 06/12/2024 10:39 AM EDT Pulse 73 06/12/2024 10:39 AM EDT Temperature 36.4 ??C (97.5 ??F) 06/12/2024 10:39 AM E DT Respiratory Rate - - Oxygen Saturation 100% 06/12/2024 10:39 AM EDT Inhaled Oxygen Concentration - - Weight 93 kg (205 lb) 06/12/2024 10:39 AM EDT Height - - Body Mass Index 31.17 05/23/2024 11:04 AM EST documented in this encounter Progress Notes * Marianne Gilbert MD - 06/12/2024 10:45 AM EDT ONC CANCER FOLLOW UP CHIEF COMPLAINT: Follow-up IDENTIFIER:Onofre Piper is a 69 y.o. male. HPI: Patient is a very pleasant 69-year-old man, came for follow-up regarding his intermittentmild to moderate thrombocytopenia, patient also have history of fatty liver and mild splenomegaly, on my workup patient platelet count is completely normal ROS: Has been feeling very well No significant bleeding bruising No significant change from previous visit of 05/23/2024 PAST MEDICAL HISTORY: Anxiety disorder Benign prostatic hypertrophy Esophagitis Hypertension Dyslipidemia Nephrolithiasis Fatty liver Thrombocytopenia PAST SURGICAL HISTORY: Cholecystectomy Whipple procedure Knee surgery SOCIAL HISTORY: He never smoke He denied alcohol use and abuse He is lives with his FAMILY HISTORY: Noncontributory Current Outpatient Medications: amLODIPine (NORVASC) 10 mg [...] Allergies PHYSICAL EXAM: Visit Vitals BP (!) 149/71 (BP Location: Right arm, Patient Position: Sitting, BP Cuff Size: Large adult) Pulse 73 Temp 36.4 ??C (97.5 ??F) (Temporal) Wt 93 kg (205 lb) SpO2 100% BMI 31.17 kg/m?? Smoking Status Never BSA 2.07 m?? ECOG 0 APPEARANCE: Alert and oriented in no acute distress EYES: nonicteric sclera pink conjunctiva ORAL CAVITY: No erythema or exudates NECK: Neck supple, no significant adenopathy, HEART: normal S1 and S2 LUNG: clear to auscultation bilaterally LYMPH NODES: No palpable superficial adenopathy ABDOMEN: soft, nontender and no organomegaly appreciated EXTREMITIES: No petechiae, ecchymosis or purpura LABS: WBC 5.7, hemoglobin 14.2 g, hematocrit 43.6%, MCV 89 and platelet count 182 SGOT 36, SGPT 85 and alk phos 110 Platelet antibody negative There was no significant clumping of the platelet on peripheral smear IMPRESSION: 1. Thrombocytopenia (CMS/HCC) 69-year-old man who came to me for evaluation on mild to moderate thrombocytopenia, whichhas resolved, there is a possibility patient had low platelet count secondary to chronic liver disease/fatty liver but I cannot rule out possibility of clumping of platelet which is not uncommon but that is a in vitro phenomena but I gave him reassurance he does not have any issues with his platelet at this time but he should continue to work with his PCP regarding his fatty liver PLAN: Return to office as needed Marianne Gilbert MD documented in this encounter Plan of Treatment Upcoming Encounters Date Type Department Care Team (Late st Contact Info) Description 06/28/2024 9:40 AM EDT Office Visit Gastroenterology - [address] [facility] [address] [place] [address] Leann Yanez, PAINT [employer]ER [address] [address] documented as of this encounter Visit Diagnoses Diagnosis Thrombocytopenia (CMS/HCC)- Primary Unspecified thrombocytopenia documented in this encounter Care Teams Physicist Nuclear Relationship Specialty Start Date End Date Akira Chu MD [address] [place] [phone] PCP - General Internal Medicine 02/01/24 documented as of this encounter
--- OUTSIDE RECORDS SUMMARY | 2024-06-21 13:43 | XMS_ITS | Data Portability ---
Author Organization [facility] [id number] Address [address] [place] [address] Care Team Providers Care Hand Turner Name Role Phone [facility] Primary Care Provider Assessment No assessment recorded. Plan of Treatment Reminders Order Date Submit Date Provider Last Modified By Organization Details Last Modified Time Details Appointments None record ed. Lab None record ed. Referral None record ed. Procedures None record ed. Surgeries None record ed. Imaging None record ed. Medication Orders None record ed. Patient TargetsNo targets recorded. Patient Instructions Encounter Date Encounter Id Patient Instructions Last Modified By Organization Details Last Modified Time 04/24/2022 [id number] high blood pressure: care instructions [email or web address] Not available 04/24/2022 10:41:12 A manual blood pressure cuff would be the most accurate way to check your blood pressure. A modest weight loss can improve your blood pressure. See printed instructions. Follow-up with your primary care doctor as soon as possible. Seek Emergency Medical evaluation for any increased symptoms such as chest pain, shortness of breath, headache, visual disturbance, numbness or weakness of the extremities or other worsening symptoms. [email or web address] Not available 04/24/2022 10:41:12 Reason for Referral None Reported. 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 Procedures Surgical History Date Name Laterality Status Provider Name and Address Organization Details Recorded Time procedure on knee completed BONNIE PRYOR - [facility] 04/24/2022 10:05:17 Imaging Results None recorded. Procedure Notes None recorded. Medical Equipment None Reported. Allergies No known drug allergies Medications Name Sig Start Date Stop Date Status Note LastModified by Organization Details LastModified Time finasteride active Not Available Not A vailable Not Available Vitals Date Recorded Body height Body mass index (BMI) Body weight Pain severity - 0-10 verbal numeric rating [Score] - Reported Body temperature Respiratory rate Heart rate Oxygen saturation Oxygen saturation in Arterial blood by Pulse oximetry Systolic blood pressure Diastolic blood pressure Systolic blood pressure Diastolic blood pressure Provider Name and Address Organization Details Last Updated DateTime 3 172.72 cm 34.2 kg/m2 487470. 28 g 0 98 [degF] 16 /min 88 /min 98 % 98 % 162 mm[Hg] 80 mm[Hg] 164 mm[Hg] 82 mm[Hg] BONNIE LANZA PA - [facility] 3 10:23:45 Social History Question Answer Notes LastModified by Organizat ion Details LastModified Time Tobacco Smoking Status Never Smoker ROYA Alvarez [facility] 04/24/2022 10:06:26 What Is Your Level Of Alcohol Consumption? None Information not available 04/24/2022 Do You Use Any Illicit Or Recreational Drugs? No Information not available 04/24/2022 Have You Recently Traveled Abroad? No Information not available 04/24/2022 Do You Or Have You Ever Used Any Other Forms Of Tobacco Or Nicotine? No Information not available 04/24/2022 Sex: Unknown Functional Status None recorded. Mental Status None recorded. Family History Relationship Description Onset Age of this Age Resolved Age Notes LastModified by Organization Details LastModified Time Father Malignant tumor of colon [email or web address] Not available 04/24 10:06:50 Father Carcinoma of prostate [email or web address] Not available 04/24 10:07:07 Medical History No medical history recorded. Immunizations Vaccine Type Date Status Note Provider Nam e and Address Organization Details Recorded Time Td (adult), 2 Lf tetanus toxoid, preservative free, adsorbed 2 completed ROYA Alvarez [facility] 04/24/2022 10:07:48 Influenza, MDCK, quadrivalent, preservative 8 completed BONNIE DRINKWINE null, PA - [facility] 04/24/2022 10:07:48 Pneumococcal conjugate PCV20, polysaccharide [id number] conjugate, adjuvant, PF 2 completed BONNIE DRINKWINE null, PA - [facility] 04/24/2022 10:07:48 Tdap 9 completed BONNIE DRINKWINE null, PA - [facility] 04/24/2022 10:07:48 COVID-19, mRNA, LNP-S, PF, 100 mcg/0.5mL dose or 50 mcg/0.25mL dose 1 completed BONNIE DRINKWINE null, PA - [facility] 04/24/2022 10:07:48 COVID-19, mRNA, LNP-S, PF, 100 mcg/0.5mL dose or 50 mcg/0.25mL dose 1 completed BONNIE DRINKWINE null, PA - [facility] 04/24/2022 10:07:48 Past Encounters Encounter ID Performer Location Encounter Start Date Encounter Closed Date Diagnosis/Indication Diagnosis SNOMED-CT Code Diagnosis ICD10 Code Diagnosis Note [id number] [address] [address] [place] [address] 02/04/2018 12:42:56 02/04/2018 13:08:45 [id number] [place] [id number] [facility] [address] [place] [address] 04/24/2022 09:58:25 04/24/2022 10:41:47 Hypertensive disorder 04868582 I10 Health Concerns Section Related Observation LastModified by Organization Detai ls LastModified Time None Recorded Concern Status LastModified by Organization Details LastModified Time None Recorded Advance Directives Directive None Recorded Payers Encounter Date Sequence Insurance Name Policy Number Policy Rivera Covered Member ID Rivera Member ID Guarantor Name 02/04/2018 2 [facility] [employer] - [facility] [id number] Onofre Piper [id number] Onofre Piper 04/24/2022 1 MEDICARE B-NM: [facility] Onofre Piper [id number] Onofreterry Piper 04/24/2022 2 [facility] - [facility] [id number] Onofre Piper [id number] Onofre Piper Notes Date Note Type Note Provider Name and Address Organization Details Recorded Time 04/24/2022 text/html Hypertension [facility] eported bypatient.source of patient informationPatient arrived at Urgent Care ambulatory Quality:No symptoms. Severity:Automatic BP cuff reading 200/140 at home today. Duration:Noted today. Onset/Timing:abrupt onset Context:at rest Aggravating Factors:None. Associated Symptoms:no shortness of breath; no fatigue; no palpitations; no decline in exercise capacity; No chest pain, headache, visual disturbance or numbness/weakness of the extremities.Notes:66 year old male presenting for evaluation after noting an automatic cuff blood pressure reading of 200/140 at home today. The patient states he had knee surgery 3 months ago and during all of his medical and surgical evaluations his blood pressure was normal. He saw his PCP last week and was noted in the office to have a BP of 160's /80's. He was instructed to try to lose weight and he would be seen in follow-up July 2022. The patient bought an automatic arm BP cuff and checked his blood pressure today noting the elevated number. He has no symptoms. He denies headache, visual disturbance, chest pain, shortness of breath, edema, numbness or weakness of the extremities. He admits to having gained about 10lbs over the holidays. Jess Cooney MD [facility], [address], PA - [facility] 04/24/2022 10:49:23
--- OUTSIDE RECORDS SUMMARY | 2024-06-21 13:43 | XMS_ITS | Clinical Summary ---
Author Organization [facility] Address [address] [place] [address] Phone Care Team Providers Care Life Management Teacher Name Role Phone Akira Chu MD Primary Care Provider [phone] Allergies No known active allergies Medications clotrimazole-b etamethasone (LOTRISONE) 1-0.05 % cream Apply topically 2 (two) times a day. 06/29/19 18 Active finasteride (PROSCAR) 5 mg tablet Take 1 tablet (5 mg total) by mouth 1 (one) time each day. 05/25/19 22 Active sildenafiL (VIAGRA) 100 mg tablet Take 0.5 tablets (50 mg total) by mouth if needed. 05/25/19 22 Active amLODIPine (NORVASC) 10 mg tablet Take 1 tablet (10 mg total) by mouth 1 (one) time each day. Active escitalopram (LEXAPRO) 10 mg tablet Take 1 tablet (10 mg total) by mouth 1 (one) time each day. Active DICLOFENAC SODIUM TOP Place on the skin. Active milk thistle 175 mg tablet Take 1 tablet (175 mg total) by mouth 1 (one) time each day. Active resveratroL 250 mg capsule Take by mouth. Active BERBERINE CHLORIDE ORAL Take 275 mg by mouth. Active multivitamin tablet Take 1 tablet by mouth 1 (one) time each day. Active magnesium oxide (MAG-OX) 400 mg magnesium tablet Take 1 tablet (400 mg total) by mouth 1 (one) time each day. Active bisacodyL (Dulcolax, bisacodyl,) 5 mg EC tablet Take 4 tablets (20 mg total) by mouth 1 (one) time. The night before your procedure 02/23/20 025 Discontinued polyethylene glycol (Miralax) 17 gram/dose oral powder Take 238 g by mouth 1 (one) time. The night before your procedure 02/23/20 025 Discontinued triamcinolone (KENALOG) 0.1 % cream Apply topically 2 (two) times a day if needed. 07/17/19 025 Discontinued Encounters Date Type Department Care Team Description 06/12/2024 10:45 AM EDT Office Visit [facility] Hematology Oncology [address] [place] [phone] Marianne Gilbert MD Thrombocytopenia (CMS/HCC) (Primary Dx) 05/23/2024 11:00 AM EST Office Visit [facility] Hematology Oncology [address] [place] [phone] Marianne Gilbert MD Thrombocytopenia (CMS/HCC) 04/30/2024 3:00 PM EST Office Visit Gastroenterology - [address] [phone] Leann Yanez, ADZ WORKER Fatty liver (Primary Dx); Abnormal liver function test; Fatty metamorphosis of liver; Other problems related to lifestyle from Last 3 Months Surgical History Surgery Date Site/Laterality Comments WHIPPLE PROCEDURE W/ LAPAROSCOPY 04/04/2022 - 04/03/2023 CHOLECYSTECTOMY KNEE SURGERY Right Medical History Medical History Date Comments GERD (gastroesophageal reflux disease) Hypertension Skin cancer Anxiety Family History Medical History Relation Name Comments Colon cancer Father Liver cancer Father Prostate cancer Father Eye cancer Mother Colon cancer Mother's Brother Breast cancer Mother's Sister Relation Name Status Comments Father Mother Mother's Brother Mother's Sister Social History Tobacco Use Types Packs/Day Years [...] PM EST Sexual Orientation Not on file Obstetrics History Last Filed Vital Signs Vital Sign Reading Time Taken Comments Blood Pressure 149/71 06/12/2024 10:39 AM EDT Pulse 73 06/12/2024 10:39 AM EDT Temperature 36.4 ??C (97.5 ??F) 06/12/2024 10:39 AM E DT Respiratory Rate 16 02/06/2024 11:31 AM EST Oxygen Saturation 100% 06/12/2024 10:39 AM EDT Inhaled Oxygen Concentration - - Weight 93 kg (205 lb) 06/12/2024 10:39 AM EDT Height 172.7 cm (5' 8 ) 05/23/2024 11:04 AM EST Body Mass Index 31.17 05/23/2024 11:04 AM EST Plan of Treatment Upcoming Encounters Date Type Department Care Team (Late st Contact Info) Description 06/28/2024 9:40 AM EDT Office Visit Gastroenterology - [address] [place] [phone] Leann Yanez, NICK [address] [place] [phone] Health Maintenance Due Date Last Done Comments Hepatitis A Vaccines (1 of 2 - Risk 2-dose series) 1975 Hepatitis B Vaccines (1 of 3 - Risk 3-dose series) 2016 RSV Immunization Patients 60 + Years Old (1 - Risk 60-74 years 1-dose series) 2016 COVID-19 Vaccine (3 - Modern a risk series) 08/20/2020 07/23/2020, 06/25/2020 Cholesterol Screening (Lipid Panel) 03/14/2022 Depression Screening 03/14/2022 Medicare Annual Wellness Visit 03/14/2022 Social Influencers of Health Screening 03/14/2022 Influenza Vaccine (#1) 2023 8, 12/30/2016 Hypertension/CHF/CAD Annual BMP Blood Test 02/06/2024 Falls Risk Assessment 02/05/2025 02/06/2024 Colorectal Cancer Screening: Colonoscopy 02/05/2029 02/06/2024 DTaP,Tdap,and Td Vaccines (3 - Td or Tdap) 10/29/2031 10/28/2021, 09/17/2008 Pneumococcal Vaccine: 50+ Years Completed 10/28/2021 Zoster Vaccines Completed 09/11/2022, 05/12/2022 Hepatitis C Screening Completed 04/30/2024 HIB Vaccines Aged Out No longer eligi ble based on patient's age to complete this topic HPV Vaccines Aged Out No longer eligi ble based on patient's age to complete this topic IPV Vaccines Aged Out No longer eligi ble based on patient's age to complete this topic MMR Vaccines Aged Out No longer eligi ble based on patient's age to complete this topic Meningococcal ACWY Vaccine Aged Out N o longer eligible based on patient's age to complete this topic Meningococcal B Vacine Aged Out No lo nger eligible based on patient's age to complete this topic RSV Immunization Patients Under 20 months Aged Out No longer eligible b ased on patient's age to complete this topic Varicella Vaccines Aged Out No longer eligible based on patient's age to complete this topic Procedures Procedure Name Priority Date/Time Associated Diagnosis Comments CBC WITH AUTO DIFFERENTIAL Routine 05/23/2024 11:23 AM EST Thrombocytopenia (CMS/HCC) PLATELET ANTIBODIES, INDIRECT Routine 05/23/2024 11:23 AM EST Thrombocytopenia (CMS/HCC) HEPATIC FUNCTION PANEL Routine 11:23 AM EST Thrombocytopenia (CMS/HCC) CBC AND DIFFERENTIAL Routine 05/23/2024 11:23 AM EST Thrombocytopenia (CMS/HCC) VIVEK IFA WITH TITER AND PATTERN Routine 04/30/2024 3:42 PM EST Fatty liver Abnormal liver function test Fatty metamorphosis of liver HEPATITIS C VIRUS QUANTITATIVE PCR Routine 04/30/2024 3:42 PM EST Fatty liver Abnormal liver function test Fatty metamorphosis of liver HEPATITIS A ANTIBODY IGM Routine 025 3:42 PM EST Fatty liver Abnormal liver function test Fatty metamorphosis of liver HEPATITIS B SCREENING PANEL Routine 04/30/2024 3:42 PM EST Fatty liver Abnormal liver function test Fatty metamorphosis of liver Other problems related to lifestyle Encounter for screening for other viral diseases PROTHROMBIN TIME WITH INR Routine 04/30/2024 3:42 PM EST Fatty liver Abnormal liver function test Fatty metamorphosis of liver TISSUE TRANSGLUTAMINASE, IGG Routine 04/30/2024 3:42 PM EST Fatty liver Abnormal liver function test Fatty metamorphosis of liver IMMUNOGLOBULIN IGA Routine 04/30/2024 3: 42 PM EST Fatty liver Abnormal liver function test Fatty metamorphosis of liver FERRITIN Routine 04/30/2024 3:42 PM EST Fatty liver Abnormal liver function test Fatty metamorphosis of liver ENDOMYSIAL ANTIBODY, IGA Routine 025 3:42 PM EST Fatty liver Abnormal liver function test Fatty metamorphosis of liver ANTIMITOCHONDRIAL ANTIBODY Routine 04/30/2024 3:42 PM EST Fatty liver Abnormal liver function test Fatty metamorphosis of liver COLONOSCOPY Routine 02/06/2024 11:10 AM EST Personal history of colon polyps, unspecified from Last 3 Months or Most Recently Relevant to Health Maintenance Results * CBC auto differential (05/23/2024 11:23 AM EST) WBC 5.7 4.8 - 10.8 K/mcL LAB HEMETOLOGY METHOD 05/23/2024 1:45 PM EST [facility] RBC 4.90 4.50 - 5.50 M/mcL LAB HEMETOLOGY METHOD 05/23/2024 1:45 PM EST [facility] Hemoglobin 14.2 13.5 - 17.5 g/dL LAB HEMETOLOGY METHOD 05/23/2024 1:45 PM [facility] Hematocrit 43.6 42.0 - 54.0 % LAB HEMETOLOGY METHOD 05/23/2024 1:45 PM [facility] MCV 89.5 79.0 - 98.0 FL LAB HEMETOLOGY METHOD 05/23/2024 1:45 PM [facility] MCH 29.2 27.0 - 32.0 pcg LAB HEMETOLOGY METHOD 05/23/2024 1:45 PM [facility] MCHC 32.6 32.0 - 37.0 g/dL LAB HEMETOLOGY METHOD 05/23/2024 1:45 PM [facility] RDW 13.9 11.0 - 15.0 % LAB HEMETOLOGY METHOD 05/23/2024 1:45 PM [facility] Platelets 182 130 - 400 K/mcL LAB HEMETOLOGY METHOD 05/23/2024 1:45 PM [facility] MPV 10.7 7.0 - 11.0 FL LAB HEMETOLOGY METHOD 05/23/2024 1:45 PM [facility] NRBC 0.0 <1.0 % LAB HEMETOLOGY METHOD 05/23/2024 1:45 PM [facility] NRBC Absolute 0.00 <0.10 K/mcL LAB HEMETOLOGY METHOD 05/23/2024 1:45 PM [facility] Neutrophils Relative 63.5 % LAB HEMETOLOGY METHOD 05/23/2024 1:45 PM [facility] Lymphocytes Relative 27.7 % LAB HEMETOLOGY METHOD 05/23/2024 1:45 PM [facility] Monocytes Relative 7.3 % LAB HEMETOLOGY METHOD 05/23/2024 1:45 PM [facility] Eosinophils Relative 1.0 % LAB HEMETOLOGY METHOD 05/23/2024 1:45 PM EST [facility] Basophils Relative 0.3 % LAB HEMETOLOGY METHOD 05/23/2024 1:45 PM EST [facility] Immature Granulocytes Relative 0.2 % LAB HEMETOLOGY METHOD 05/23/2024 1:45 PM EST [facility] Neutrophils Absolute 3.63 1.50 - 7.00 K/mcL LAB HEMETOLOGY METHOD 05/23/2024 1:45 PM EST [facility] Lymphocytes Absolute 1.59 1.00 - 5.00 K/mcL LAB HEMETOLOGY METHOD 05/23/2024 1:45 PM EST [facility] Monocytes Absolute 0.42 0.20 - 1.00 K/mcL LAB HEMETOLOGY METHOD 05/23/2024 1:45 PM EST [facility] Eosinophils Absolute 0.06 0.00 - 0.50 K/mcL LAB HEMETOLOGY METHOD 05/23/2024 1:45 PM EST [facility] Basophils Absolute 0.02 0.00 - 0.20 K/mcL LAB HEMETOLOGY METHOD 05/23/2024 1:45 PM EST [facility] Immature Granulocytes Absolute 0.01 0.00 - 0.03 K/mcL LAB HEMETOLOGY METHOD 05/23/2024 1:45 PM EST [facility] Blood Venous blood specimen / Unknown Venipuncture / Unknown 05/23/2024 11:23 AM EST 05/23/2024 1:36 PM EST us Marianne Gilbert MD LAB BLOOD ORDERABLES Final R esult [facility] [address] [place] [address], * Platelet antibodies, indirect (05/23/2024 11:23 AM EST) Pathologist [facility] Overall Result Negative Not Applicable 05/30/2024 8:57 AM EST [facility] Interpretation SEE BELOW 05/30/2024 8:57 AM EST [facility] Comment:RESULT: No platelet antibodies were detected. GPIIb/IIIa (Cell-1) Negative Not Applicable 05/30/2024 8:57 AM EST [facility] Comment: Antigens: HPA-1a/1a,3a/3a,4a/ Observed OD Value: 0.115/Cutoff: 0.243 GPIIb/IIIa (Cell-2) Negative Not Applicable 05/30/2024 8:57 AM EST [facility] Comment: Antigens: HPA-1b/1b,3b/3b,4a/ Observed OD Value: 0.080/Cutoff: 0.178 GPIa/IIa (Cell-1) Negative Not Applicable 05/30/2024 8:57 AM EST [facility] Comment: Antigens: HPA-5b/5b Observed OD Value: 0.123/Cutoff: 0.150 GPIa/IIa (Cell-2) Negative Not Applicable 05/30/2024 8:57 AM EST [facility] Comment: Antigens: HPA-5a/5a Observed OD Value: 0.115/Cutoff: 0.173 GPIb/IX Negative Not Applicable 05/30/2024 8:57 AM EST [facility] Comment:Observed OD Value: 0 .034/Cutoff: 0.069 GPIV Negative Not Applicable 05/30/2024 8:57 AM EST [facility] Comment:Observed OD Value: 0 .078/Cutoff: 0.168 HLA Class I Negative Not Applicable 05/30/2024 8:57 AM EST [facility] Comment: Observed OD Value: 0.087/Cutoff: 0.205 ADDITIONAL INFORMATION The presence of other HPA polymorphic variants located on GPIIb/IIIa (HPA-6,7,8,9,10,11,14,16,17,19,20,21), GPIa/IIa (HPA-13,18), and GPIb/IX (HPA-12) have not been determined for this assay. Therefore, antibodies to these may be reactive in this assay. Method: Deepika Based Assay CLIA: [id number] ??CLIA Credit Card Specialist: RAYMOND PINEDA,Ph.D. Reason for Request? N/A 05/30/2024 8:57 AM EST [facility] IVIg in last month? N/A 05/30/2024 8:57 AM EST [facility] Comment: Test Performed by: [address] [address] Credit Card Specialist: Raymond Pineda Ph.D.; CLIA# [id number] Comment added after verification. Original result, verified by [email or web address] at 18:01 on 05/25/2024 Plt Transfusion in last 72 hours? N/A 05/30/2024 8:57 AM EST [facility] Platelet Count x 10(9)/L ? N/A 05/30/2024 8:57 AM EST [facility] Blood Venous blood specimen / Unknown Venipuncture / Unknown 05/23/2024 11:23 AM EST 05/23/2024 1:36 PM EST Marianne Gilbert MD LAB BLOOD ORDERABLES Final R esult [facility] [address] [place] [address] * (ABNORMAL) Hepatic function panel (05/23/2024 11:23 AM EST) Total Protein 7.0 6.0 - 8.0 g/dL LAB CHEMISTRY METHOD 05/23/2024 3:16 PM EST [facility] Albumin 4.0 3.2 - 5.0 g/dL LAB CHEMISTRY METHOD 05/23/2024 3:16 PM EST [facility] Total Bilirubin 0.7 0.0 - 1.4 mg/dL LAB CHEMISTRY METHOD 05/23/2024 3:16 PM EST [facility] Bilirubin, Direct 0.2 0.0 - 0.3 mg/dL LAB CHEMISTRY METHOD 05/23/2024 3:16 PM EST [facility] Bilirubin, Indirect 0.5 0.0 - 1.1 mg/dL LAB CHEMISTRY METHOD 05/23/2024 3:16 PM EST [facility] ALT (SGPT) 85(H) 10 - 60 unit/L LAB CHEMISTRY METHOD 05/23/2024 3:16 PM EST [facility] AST (SGOT) 36 10 - 42 unit/L LAB CHEMISTRY METHOD 05/23/2024 3:16 PM [facility] Alkaline Phosphatase 110 42 - 121 unit/L LAB CHEMISTRY METHOD 05/23/2024 3:16 PM EST [facility] Blood Venous blood specimen / Unknown Venipuncture / Unknown 05/23/2024 11:23 AM EST 05/23/2024 1:36 PM EST us Marianne Gilbert MD LAB BLOOD ORDERABLES Final R esult Performing Organization Address [facility] Co de Phone Number [facility] [address] [place] [address], [place] [phone] * (ABNORMAL) Hepatitis B screening panel (04/30/2024 3:42 PM EST) Hepatitis B Surface Ag Negative Negative LAB CHEMISTRY METHOD 04/30/2024 5:59 PM EST [facility] Hep B Core Total Ab Negative Negative LAB CHEMISTRY METHOD 04/30/2024 5:59 PM EST [facility] Hepatitis B Surface Ab Positive(A) Negative LAB CHEMISTRY METHOD 04/30/2024 5:59 PM EST [facility] Blood Venous blood specimen / Unknown Venipuncture / Unknown 04/30/2024 3:42 PM EST 04/30/2024 4:02 PM EST us Leann Yanez ADZ WORKER LAB BLOOD ORDERABLES Final Re sult Performing Organization Address [facility]/ZIP Co de Phone Number [facility] [address] [place] [address], [place] [phone] * Endomysial antibody, IgA (04/30/2024 3:42 PM EST) [facility] Endomysial IgA Negative Negative 05/02/2024 11:56 AM EST [facility] Blood Venous blood specimen / Unknown Venipuncture / Unknown 04/30/2024 3:42 PM EST 04/30/2024 4:02 PM EST Leann Yanez ADZ WORKER LAB BLOOD ORDERABLES Final Re sult Performing Organization Address [facility]/ZIP Co de Phone Number [facility] [address] [place] [address], [place] [phone] * (ABNORMAL) VIVEK IFA with titer and pattern (04/30/2024 3:42 PM EST) [facility] VIVEK Positive( A) Negative 05/02/2024 2:24 PM EST [facility] VIVEK Pattern Speckled( A) (none) 05/02/2024 2:24 PM EST [facility] Comment:May be associated wi th SLE, Sjogren's syndrome, and mixed connective tissue disorder (MCTD). Titer 1:160(A) <1:160 05/02/2024 2:24 PM EST [facility] Comment: Approximately 5% of healthy persons have VIVEK titer of 1:160 or higher Further testing for other autoantibodies should be prompted by specific clinical findings/impressions. Blood Venous blood specimen / Unknown Venipuncture / Unknown 04/30/2024 3:42 PM EST 04/30/2024 4:02 PM EST us Leann Yanez NP LAB BLOOD ORDERABLES Final Re sult Performing Organization Address [facility]/ZIP Co de Phone Number [facility] [address] [place] [address], [place] [phone] * Hepatitis C virus quantitative molecular study (04/30/2024 3:42 PM EST) [facility] HCV Qual Interp Not Detected Not Detected LAB MOLECULAR DIAGNOSTICS METHOD 05/01/2024 11:29 AM EST [facility] Comment:HCV RNA not detected , unable to report quantitative results. Blood Venous blood specimen / Unknown Venipuncture / Unknown 04/30/2024 3:42 PM EST 04/30/2024 4:01 PM EST Leann Yanez NP LAB BLOOD ORDERABLES Final Re sult Performing Organization Address [facility] de Phone Number [facility] [address] [place] [address], * Hepatitis A antibody IgM (04/30/2024 3:42 PM EST) [facility] Hepatitis A Antibody IgM Negative Negative LAB CHEMISTRY METHOD 04/30/2024 6:00 PM EST [facility] Blood Venous blood specimen / Unknown Venipuncture / Unknown 04/30/2024 3:42 PM EST 04/30/2024 4:02 PM EST Narrative [facility] - 04/30/2024 6:00 PM EST Over the counter supplements containing high doses of biotin may interfere with this assay. ??If interference is suspected, patients shoud be retested after refraining from biotin supplements for 72 hours. us Leann Yanez NP LAB BLOOD ORDERABLES Final Re sult Performing Organization Address [facility] de Phone Number [facility] [address] [place] [address], [place] [phone] * Tissue transglutaminase, IgG (04/30/2024 3:42 PM EST) [facility] t-Transglutamin ase (tTG) IgG 5 0 - 5 U/mL 05/02/2024 9:05 PM EST [facility] Comment: ?Negative ?0 - 5 ?Weak Positive ?? 6 - 9 ?Positive ? >9 Blood Venous blood specimen / Unknown Venipuncture / Unknown 04/30/2024 3:42 PM EST 04/30/2024 4:01 PM EST Narrative [facility] - 05/02/2024 9:05 PM EST Performed at: ??01 - [facility] [address] ??[id number] Credit Card Specialist: Thuy Cuevas MD, Phone: ??[phone] Leann Yanez ADZ WORKER LAB BLOOD ORDERABLES Final Re sult Performing Organization Address [facility] Co de Phone Number [facility] * Antimitochondrial antibody (04/30/2024 3:42 PM EST) Pathologist [facility] Mitochondrial Antibody Quantitative 15.7 <=20.0 units LAB CHEMISTRY METHOD 05/10/2024 2:42 PM EST [facility] Mitochondrial Antibody Qualitative Negative Negative LAB CHEMISTRY METHOD 05/10/2024 2:42 PM EST [facility] Blood Venous blood specimen / Unknown Venipuncture / Unknown 04/30/2024 3:42 PM EST 04/30/2024 4:02 PM EST Leann Yanez ADZ WORKER LAB BLOOD ORDERABLES Final Re sult Performing Organization Address [facility] Co de Phone Number [facility] [address] [place] [address], [place] [phone] * Prothrombin time with INR (04/30/2024 3:42 PM EST) Pathologist [facility] Protime 11.0 10.6 - 13.9 sec LAB COAGULATION METHOD 04/30/2024 4:31 PM EST [facility] INR 0.9 LAB COAGULATION METHOD 04/30/2024 4:31 PM EST [facility] Blood Venous blood specimen / Unknown Venipuncture / Unknown 04/30/2024 3:42 PM EST 04/30/2024 4:03 PM EST us Leann Yanez ADZ WORKER LAB BLOOD ORDERABLES Final Re sult [facility] [address] [place] [address], [place] [phone] * Immunoglobulin IgA (04/30/2024 3:42 PM EST) IgA 240 61 - 348 mg/dL LAB CHEMISTRY METHOD 04/30/2024 5:13 PM EST [facility] Blood Venous blood specimen / Unknown Venipuncture / Unknown 04/30/2024 3:42 PM EST 04/30/2024 4:02 PM EST us Leann Yanez NP LAB BLOOD ORDERABLES Final Re sult Performing Organization Address [facility]/ZIP Co de Phone Number [facility] [address] [place] [address], [place] [phone] * Ferritin (04/30/2024 3:42 PM EST) Ferritin 114 26 - 388 ng/mL LAB CHEMISTRY METHOD 04/30/2024 5:13 PM EST [facility] Blood Venous blood specimen / Unknown Venipuncture / Unknown 04/30/2024 3:42 PM EST 04/30/2024 4:02 PM EST us Leann Yanez ADZ WORKER LAB BLOOD ORDERABLES Final Re sult Performing Organization Address City/[facility]/ZIP Co de Phone Number [facility] [address] [place] [address], [place] [phone] * COLONOSCOPY Anesthesia - MAC; [facility] ENDOSCOPY (02/06/2024 11:10 AM EST) Anatomical Region Laterality Modality Endoscopy 02/06/2024 10:1 2 AM EST Narrative 02/06/2024 11:[address] [facility] GI Patient Name: Onofre Piper ? Procedure Date: 02/06/2024 10:12 AM ? Date of : 1955 ?Age: 68 Room: ROOM 17 ? Gender: Male Note Status: Finalized ?Attending MD: Portillo Espinal MD, Procedure Date No Time: 02/06/2024 ? Procedure: ? Colonoscopy Indications: ? High risk colon cancer surveillance: Personal history ? of colonic polyps Providers: ? Portillo Espinal MD Referring MD: ?Portillo Espinal MD, Akira Chu MD Medicines: ? Monitored Anesthesia Care Complications: ? No immediate complications. Estimated Blood Loss: ? Estimated blood loss: none. Procedure: ? Pre-Anesthesia Assessment: ? - ASA Grade Assessment: III - A patient with severe ? systemic disease. ? - After reviewing the risks and benefits, the patient ? was deemed in satisfactory condition to undergo the ? procedure. ? After I obtained informed consent, the scope was ? passed under direct vision. Throughout the procedure, ? the patient's blood pressure, pulse, and oxygen ? saturations were monitored continuously.The ? Colonoscope was introduced through the anus and ? advanced to the cecum, identified by appendiceal ? orifice and ileocecal valve. The colonoscopy was ? performed without difficulty. The patient tolerated ? the procedure well. The quality of the bowel ? preparation was good. Findings: ?An 8 mm polyp was found in the splenic flexure. The ? polyp was semi-pedunculated. The polyp was removed ? with a hot snare. Resection and retrieval were ? complete. Estimated blood loss was minimal. ? Scattered small-mouthed diverticula were found in the ? sigmoid colon. ? Non-bleeding internal hemorrhoids were found during ? retroflexion. The hemorrhoids were small. ? The exam was otherwise without abnormality on direct ? and retroflexion views. Impression: ?- One 8 mm polyp at the splenic flexure, removed with ? a hot snare. Resected and retrieved. ? - Diverticulosis in the sigmoid colon. ? - Non-bleeding internal hemorrhoids. ? - The examination was otherwise normal on direct and ? retroflexion views. Recommendation: ?- Perform an upper GI endoscopy today. ? - Await pathology results. ? - Repeat colonoscopy for surveillance based on ? pathology results. Portillo Espinal MD Portillo Espinal MD 02/06/2024 11:04:37 AM This report has been signed electronically.Portillo Espinal MD Number of Addenda: 0 Note Initiated On: 02/06/2024 10:12 AM Scope In: Scope Out: ? Endoscopy Department at [facility] - [address] [place] [address], ? [place] [id number] Procedure Note Portillo Espinal MD - 02/06/2024 [facility] GI Patient Name: Onofre Piper Procedure Date: 02/06/2024 10:12 AM Date of : 1955 Age: 68 Room: ROOM 17 Gender: Male Note Status: Finalized Attending MD: Portillo Espinal MD, Procedure Date No Time: 02/06/2024 Procedure: Colonoscopy Indications: High risk colon cancer surveillance: Personalhistory of colonic polyps Providers: Portillo Espinal MD Referring MD: Portillo Espinal MD, Akira Chu MD Medicines: Monitored Anesthesia Care Complications: No immediate complications. Estimated Blood Loss: Estimated blood loss: none. Procedure: Pre-Anesthesia Assessment: - ASA Grade Assessment: III - A patient with severe systemic disease. - After reviewing the risks and benefits, thepatient was deemed in satisfactory condition to undergo the procedure. After I obtained informed consent, the scope was passed under direct vision. Throughout theprocedure, the patient's blood pressure, pulse, and oxygen saturations were monitored continuously.The Colonoscope was introduced through the anus and advanced to the cecum, identified by appendiceal orifice and ileocecal valve. The colonoscopy was performed without difficulty. The patient tolerated the procedure well. The quality of the bowel preparation was good. Findings: An 8 mm polyp was found in the splenic flexure. The polyp was semi-pedunculated. The polyp was removed with a hot snare. Resection and retrieval were complete. Estimated blood loss was minimal. Scattered small-mouthed diverticula were found inthe sigmoid colon. Non-bleeding internal hemorrhoids were found during retroflexion. The hemorrhoids were small. The exam was otherwise without abnormality ondirect and retroflexion views. Impression: - One 8 mm polyp at the splenic flexure, removedwith a hot snare. Resected and retrieved. - Diverticulosis in the sigmoid colon. - Non-bleeding internal hemorrhoids. - The examination was otherwise normal on directand retroflexion views. Recommendation: - Perform an upper GI endoscopy today. - Await pathology results. - Repeat colonoscopy for surveillance based on pathology results. Portillo Espinal MD Portillo Espinal MD 02/06/2024 11:04:37 AM This report has been signed electronically.Portillo Espinal MD Number of Addenda: 0 Note Initiated On: 02/06/2024 10:12 AM Scope In: Scope Out: Endoscopy Department at [facility] - [address] [place] [id number] us Portillo Espinal MD GI~PROCEDURE ORDERABLES Final Result from Last 3 Months or Most Recently Relevant to Health [place] [id number] MEDICARE [facility] Care Teams Life Management Teacher Relationship Specialty Start Date End Date Akira Chu MD [address] [place] [id number] PCP - General Internal Medicine 02/01/24
== END 2024-06-21 12:01 | disposition home or self-care (01) ==
LOC: HO.HUSH 11:26
PROVIDERS: PCP Internal Medicine; Visit Provider Urology
DX: C61 Malignant neoplasm of prostate (principal)
CPT/HCPCS: 99213

== ENCOUNTER → 2024-06-21 11:25 | Outpatient (BNVA) | payer MEDICARE, OTHER, SELFPAY | PROVIDERS: PCP Internal Medicine; Visit Provider Urology | DX: C61 Malignant neoplasm of prostate (principal); N40.0 Benign prostatic hyperplasia without lower urinary tract symptoms; N52.9 Male erectile dysfunction, unspecified | CPT/HCPCS: 99212 ==

== ENCOUNTER 2024-11-01 09:01 | Outpatient (AMB) | payer MEDICARE, OTHER, SELFPAY ==
--- NOTE | 2024-11-01 09:02 | MHC.OFFVIS ---
Intake Visit Reasons: 4m/PSA(psa?) Intake Note: Pt presents to the office today for a 4 month follow up/PSA. 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 He is a patient of Dr. Chu. He is seen for the following urologic conditions - BPH - prostate cancer - erectile dysfunction Telemedicine Evaluation 15 min Consultation Zoodig Criselda Video PSA fallen on 5 times a week finasteride Repeat in six-month Adequate urinary function Still using on demand PDE5 as needed Pancreatic Lesion - 03/26 Whipple procedure Prostate cancer: low risk, low volume Gordon 6 - 12/25 MRI - 55gm prostate - no MRI evidence of lesions suggestive of prostate cancer Prostate cancer was diagnosed 01/[address] Fernández. Diagnosis was reached by 01/18 , needle biopsy, for elevated PSA, PSA at diagnosis 4.7, size at TRUS 50 01/20 , needle biopsy. The Satinder grade is Jan 201705/16 , 3+3 = 6 < 10% January 2019 1 of 12 cores RAL 15% , 3+3 = 6. TNM Classification of Malignant Tumours (TNM) T1c. The D'Sharlene (NCCN) risk category is Ultralow risk (PSA< 4, Gl < 7, T1c). Initial therapy included Primary treatment, Deferred Therapy (active surveillance). Recent labs included 04/21 , a PSA (prostate-specific antigen) 3.9 08/19 2.9, 12/20 2.0, 04/22 2.2, 07/22 2.9 - 02/21 2.9, 09/22 3.2, 12/23 3.5, 04/25 2.8, 08/23 2.5, 12/24 2.6, 05/27 2.4, 12/25 2.2, 06/25 2.8, 12/26 2.5, 06/26 6.3, 11/26 4.0 Recent imaging included 05/23 , an MRI (magnetic resonance imaging) - right apex 1.1 cm PiRADs 3 - left mid gland posterior 1.1cm PiRADs 3 Associated conditions erectile dysfunction Yes Therapeutic plan: Active Surveillance - finasteride 5 times a week Erectile dysfunction Responsive to sildenafil 100mg Baseline daily tadalafil 10 mg PFSH Medical History Hx of basal cell carcinoma History of kidney stones Adenoma of right adrenal gland Fatty liver Dysplastic nevus 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n Benign prostatic hyperplasia with lower urinary tract symptoms Nocturia Elevated PSA Prostate cancer Surgical History History of surgery Review of Systems Const All systems reviewed & are unremarkable except as noted in HPI and below Reports no additional complaints Resp Reports no additional complaints GI Reports no additional complaints Reports as per HPI Musc Reports no additional complaints Physical Exam Telemedicine evaluation Appropriate responses Regular breathing rate and rhythm HEENT Head: Yes normal to inspection Ears: hearing grossly normal bilaterally Eyes General: appearance normal, both eyes and all related structures Neck Neck: Yes normal visual inspection Chest Chest palpation & inspection: normal inspection of the chest Resp Effort & Inspection: normal respiratory effort and able to speak in complete sentences Telehealth Telehealth Telehealth Platform: Zoodig Location of provider rendering services: practice address Location of patient: address on file Patient Identification confirmed using: Name, : Yes Telehealth method: video Patient verbally consented to treatment: Yes Patient verbally consented to billing insurance company: Yes Patient informed of any privacy concerns related to visit: Yes Minutes spent on Phone/Video with Pt.: 15 Assessment & Plan Assessment & Plan (1) Prostate cancer: Comment: Low-grade, low volume 2018 Code(s): C61 - Malignant neoplasm of prostate Category: Medical (2) Erectile dysfunction due to arterial insufficiency: Code(s): N52.01 - Erectile dysfunction due to arterial insufficiency Category: Medical Plan Six-month follow-up PSA Orders: Orders PSA,Total (Free>4and<10) 6 Months C61 - Malignant neoplasm of prostate Patient Instructions: This note is constructed using voice recognition software. While every effort has been made to ensure accuracy tool crib manager errors may have been included. Imaging studies, laboratory and physical exam results were discussed and reviewed in detail. No major barriers to patient understanding were identified. An opportunity to ask questions regarding the treatment plan was provided. All questions were answered. The patient expressed understanding and agreement with the above treatment plan. The patient is aware they should contact our office by phone for worsening of their current condition or the appearance of new urologic symptoms. Compliance is encouraged with any medications and followup testing that is ordered. It is a privilege to participate in the urologic care of your patient. If you have any questions or concerns regarding treatment for the above conditions, or other urologic issues, please do not hesitate to contact me. The office telephone contact is [phone]. Sincerely, Dr Miguel Hodges MD, [facility] - Urology Compassionate Specialist Care for the Genitourinary System Coding Level of Care Code Tele Est Pt Level 3 (00060) Complex EM visit Add On G2211 Diagnoses Prostate cancer C61 Erectile dysfunction due to arterial insufficiency N52.01
--- OUTSIDE RECORDS SUMMARY | 2024-11-01 09:21 | XMS_ITS | Clinical Summary ---
Author Organization [facility] Address [address] [place] [address] Phone Care Team Providers Care Manager Council Name Role Phone Akira Chu MD Primary Care Provider [phone] Allergies No known active allergies Medications clotrimazole-be tamethasone (LOTRISONE) 1-0.05 % cream Apply topically 2 (two) times a day. 8 Active finasteride (PROSCAR) 5 mg tablet Take 1 tablet (5 mg total) by mouth 1 (one) time each day. 2 Active sildenafiL (VIAGRA) 100 mg tablet Take 0.5 tablets (50 mg total) by mouth if needed. 2 Active amLODIPine (NORVASC) 10 mg tablet Take [...] resveratroL 250 mg capsule Take by mouth. Acti ve BERBERINE CHLORIDE ORAL Take 275 mg by mouth. Active multivitamin tablet Take 1 tablet by mouth 1 (one) time each day. Active magnesium oxide (MAG-OX) 400 mg magnesium tablet Take 1 tablet (400 mg total) by mouth 1 (one) time each day. Active Surgical History Surgery Date Site/Laterality Comments WHIPPLE [...] 73 06/12/2024 10:39 AM EDT Temperature 36.4 C (97.5 F) 06/12/2024 10:39 AM EDT Respiratory Rate 16 02/06/2024 11:31 AM EST Oxygen Saturation 100% 06/12/2024 10:39 AM EDT Inhaled Oxygen Concentration - - Weight 92.5 kg (204 lb) 06/28/2024 9:40 AM EDT Height 172.7 cm (5' 8 ) 06/28/2024 9:40 AM EDT Body Mass Index 31.02 06/28/2024 9:40 AM EDT Plan of Treatment Health Maintenance Due Date Last Done Comments Hepatitis A Vaccines (1 of 2 - Risk 2-dose series) 1975 Hepatitis B Vaccines (1 of 3 - Risk 3-dose series) 2016 RSV Immunization Adult Patients (1 - Risk 60-74 years 1-dose series) 2016 COVID-19 Vaccine (3 - Modern a risk series) 08/20/2020 07/23/2020, 06/25/2020 Cholesterol Screening (Lipid Panel) 03/14/2022 Medicare Annual Wellness Visit 03/14/2022 Social Influencers of Health Screening 03/14/2022 Hypertension/CHF/CAD Annual BMP Blood Test 02/06/2024 Depression Screening 04/04/2024 Influenza Vaccine (#1) 2024 8, 12/30/2016 Falls Risk Assessment 02/05/2025 02/06/2024 Colorectal Cancer [...] age to complete this topic Meningococcal B Vaccine Aged Out No l onger eligible based on patient's age to complete this topic RSV Immunization Patients Under 20 months Aged Out No longer eligible b ased on patient's age to complete this topic Varicella Vaccines Aged Out No longer eligible based on patient's age to complete this topic Procedures Procedure Name Priority Date/Time Associated Diagnosis Comments HEPATITIS C VIRUS QUANTITATIVE PCR Routine 04/30/2024 3:42 PM EST Fatty liver Abnormal liver function test Fatty metamorphosis of liver COLONOSCOPY Routine 02/06/2024 11:10 AM EST Personal history of colon polyps, unspecified from Last 3 Months or Most Recently Relevant to Health Maintenance Results * Hepatitis C virus quantitative molecular study (04/30/2024 3:42 PM EST) HCV Qual Interp Not Detected Not Detected LAB MOLECULAR DIAGNOSTICS METHOD 05/01/2024 11:29 AM EST [facility] Comment:HCV RNA not detected , unable to report quantitative results. Blood Venous blood specimen / Unknown Venipuncture / Unknown 04/30/2024 3:42 PM EST 04/30/2024 4:01 PM EST us Leann Leon Yanez [facility] BLOOD ORDERABLES Final Re sult [facility] ([facility]) [facility] [address] [place] [address], [place] [phone] * COLONOSCOPY Anesthesia - MAC; [facility] ENDOSCOPY (02/06/2024 11:10 AM EST) Anatomical Region Laterality Modality Endoscopy 02/06/2024 10:1 2 AM EST Narrative 02/06/2024 11:04 AM EST [facility] Patient Name: Onofre Piper Procedure Date: 02/06/2024 10:12 AM Date of : 1955 Age: 68 Room: ROOM 17 Gender: Male Note Status: Finalized Attending MD: Portillo Espinal MD, Procedure Date No Time: 02/06/2024 Procedure: Colonoscopy Indications: High risk colon cancer surveillance: Personal history of colonic polyps Providers: Portillo Espinal MD Referring MD: Portillo Espinal MD, Akira Chu MD Medicines: Monitored Anesthesia Care Complications: No immediate complications. Estimated Blood Loss: Estimated blood loss: none. Procedure: Pre-Anesthesia Assessment: - ASA Grade Assessment: III - A patient with severe systemic disease. - After reviewing the risks and benefits, the patient was deemed in satisfactory condition to undergo the procedure. After I obtained informed consent, the scope was passed under direct vision. Throughout the procedure, the patient's blood pressure, pulse, and oxygen [...] was minimal. Scattered small-mouthed diverticula were found in the sigmoid colon. Non-bleeding internal hemorrhoids were found during retroflexion. The hemorrhoids were small. The exam was otherwise without abnormality on direct and retroflexion views. Impression: - One 8 mm polyp at the splenic flexure, removed with a hot snare. Resected and retrieved. - Diverticulosis in the sigmoid colon. - Non-bleeding internal hemorrhoids. - The examination was otherwise normal on direct and retroflexion views. Recommendation: - Perform an upper GI endoscopy today. - Await pathology results. - Repeat colonoscopy for surveillance based on pathology results. Portillo Espinal MD Portillo Espinal MD 02/06/2024 11:04:37 AM This report has been signed electronically.Portillo Espinal MD Number of Addenda: 0 Note Initiated On: 02/06/2024 10:12 AM Scope In: Scope Out: Endoscopy Department at [facility] - [address] [place] [id number] Procedure Note Portillo Espinal MD - 02/06/2024 [facility] Patient Name: Onofre Piper Procedure Date: [...] Scope In: Scope Out: Endoscopy Department at [address] [id number] Portillo Espinal MD GI~PROCEDURE ORDERABLES Final Result from Last 3 Months or Most Recently Relevant to Health Maintenance Insurance [facility] [id number] MEDICARE [facility] Care Teams Manager Council Relationship Specialty Start Date End Date Akira Chu MD [address] [place] [address] PCP - General Internal Medicine 02/01/24
== END 2024-11-01 09:39 | disposition home or self-care (01) ==
LOC: HO.HUSH 09:01
PROVIDERS: PCP Internal Medicine; Visit Provider Urology
DX: C61 Malignant neoplasm of prostate (principal); N52.01 Erectile dysfunction due to arterial insufficiency
CPT/HCPCS: 99213; G2211